=== PATIENT | female | born 1960 | race Two or more races ===

== ENCOUNTER 2019-10-23 14:26 | Emergency (ER) | payer SELFPAY ==
--- NOTE | 2019-10-23 16:57 | EKG REPORT ---
SEVERITY:- NORMAL ECG - SINUS RHYTHM : Confirmed by: Raheel Bustamante MD 23-Oct-2019 16:57:03
--- NOTE | 2019-10-23 17:02 | RADIOLOGY REPORT (SQ) ---
EXAM DESCRIPTION: CHEST SINGLE VIEW IMAGES COMPLETED DATE/TIME: 10/23/2019 4:52 pm REASON FOR STUDY: sob COMPARISON: None. EXAM PARAMETERS: NUMBER OF VIEWS: One view. TECHNIQUE: Single frontal radiographic view of the chest acquired. RADIATION DOSE: NA LIMITATIONS: None. FINDINGS: LUNGS AND PLEURA: No opacities, masses or pneumothorax. No pleural effusion. MEDIASTINUM AND HILAR STRUCTURES: No masses. Contour normal. HEART AND VASCULAR STRUCTURES: Heart upper limits of normal in size. Normal vasculature. BONES: No acute findings. HARDWARE: None in the chest. OTHER: No other significant finding. IMPRESSION: 1. NO ACUTE RADIOGRAPHIC FINDING IN THE CHEST. TECHNICAL DOCUMENTATION: JOB ID: [id number] [employer]- All Rights Reserved Reading location - IP/workstation name: [email or web address]
--- NOTE | 2019-10-23 17:05 | ER Document Report ---
ED Respiratory Problem - General Chief Complaint: Shortness Of Breath Stated Complaint: SHORTNESS OF BREATH Time Seen by Provider: 10/23/19 16:23 Notes: CHIEF COMPLAINT: Shortness of breath over the last 5 days HPI: 59-year-old female who is in otherwise good health presenting for shortness of breath over the last 5 days. Patient states that she moved up here in September from [place] and did self quarantine. She states that 2 weeks ago she had slight cold symptoms so did have a COVID test that was negative. Patient states that when she began having increasing shortness of breath within this last week without fever she went to [facility] and had another test done 2 days ago that was positive for COVID. They prescribed her prednisone and an albuterol inhaler which she has not been using over the last 2 days. ROS: See HPI - all other systems were reviewed and are otherwise negative Constitutional: no fever Eyes: no drainage, no blurred vision ENT: no runny nose, no sore throat Cardiovascular: no chest pain Resp: + SOB, no cough GI: no vomiting, no diarrhea, no abdominal pain : no dysuria Integumentary: no rash Allergy: no hives Musculoskeletal: no extremity pain or swelling Neurological: no numbness/tingling, no weakness MEDICATIONS: I agree with the patient medications as charted by the RN. ALLERGIES: I agree with the allergies as charted by the RN. PAST MEDICAL HISTORY/PAST SURGICAL HISTORY: Reviewed and agree as charted by RN. SOCIAL HISTORY: Reviewed and agree as charted by RN. FAMILY HISTORY: No significant familial comorbid conditions directly related to patient complaint EXAM: Reviewed vital signs as charted by RN. CONSTITUTIONAL: Alert and oriented and responds appropriately to questions. Well-appearing; well-nourished HEAD: Normocephalic; atraumatic EYES: PERRL; Conjunctivae clear, sclerae non-icteric ENT: normal nose; no rhinorrhea; moist mucous membranes; pharynx without lesions noted, no uvula edema or deviation, no tonsillar hypertrophy, phonation normal NECK: Supple without meningismus; non-tender; no cervical lymphadenopathy, no masses CARD: RRR; no murmurs, no clicks, no rubs, no gallops; symmetric distal pulses RESP: Normal chest excursion without splinting or tachypnea; breath sounds clear and equal bilaterally; no wheezes, no rhonchi, no rales, pulse oximetry 97% on room air not hypoxic ABD/GI: Normal bowel sounds; non-distended; soft, non-tender, no rebound, no guarding; no palpable organomegaly or masses. BACK: The back appears normal and is non-tender to palpation, there is no CVA tenderness EXT: Normal ROM in all joints; non-tender to palpation; no cyanosis, no e ffusions, no edema SKIN: Normal color for age and race; warm; dry; good turgor; no acute lesions noted NEURO: Moves all extremities equally; Motor and sensory function intact PSYCH: The patient's mood and manner are appropriate. Grooming and personal hygiene are appropriate. MDM: 59-year-old otherwise healthy female who is COVID positive in the last 2 to 3 days with 5 days of shortness of breath without chest pain. Patient states 2 days ago she actually did feel slightly better but states the shortness of breath was worse last night. Has an inhaler of albuterol and prednisone prescription which she filled but never started taking. We will show the patient how to use her albuterol inhaler. Given her age will obtain a chest x- ray to evaluate for infiltrate or pneumonia. Will obtain 1 set of screening cardiac labs - Related Data Allergies/Adverse Reactions: codeine Allergy (Verified 10/23/19 17:22) Past Medical History - Social History Smoking Status: Unknown if Ever Smoked Family History: Reviewed & Not Pertinent Physical Exam - Vital signs Vitals: Temp Pulse Resp BP Pulse Ox 98.8 F 79 16 121/89 H 97 10/23/19 15:19 10/23/19 15:19 10/23/19 15:19 10/23/19 15:19 10/23/19 15:19 Course - Re-evaluation Re-evalutation: 10/23/19 18:16 Patient's cardiac labs do not show acute abnormalities. Once that was obtained given her shortness of breath complaint over the last 5 days, she has not had any chest pain suggesting ACS. EKG normal sinus rhythm with a ventricular rate of 67 interpreted by emergency department physician. OR 128 QT 416. Will give patient Decadron here as prednisone not specifically recommended for COVID positive shortness of breath patient's. Patient chest x-ray did not show evidence of infiltrate will teach patient how to use her albuterol inhaler which she has not been using and have her follow-up with PCP return for worsening symptoms. Patient's dyspnea comes and goes, does not have any pleuritic pain or tachycardia suggesting a PE at this time. - Vital Signs Vital signs: Temp Pulse Resp BP Pulse Ox 98.8 F 79 16 121/89 H 97 10/23/19 15:19 10/23/19 15:19 10/23/19 15:19 10/23/19 15:19 10/23/19 16:47 - Laboratory Result Diagrams: 10/23/19 17:02 10/23/19 17:02 Laboratory results interpreted by me: 10/23/19 10/23/19 17:02 17:02 Hct 35.1 L ALT 41 H Discharge - Discharge Clinical Impression: COVID-19 virus infection Dyspnea Qualifiers: Dyspnea type: shortness of breath Qualified Code(s): R06.02 - Shortness of breath; R06.00 - Dyspnea, unspecified; R06.01 - Orthopnea Condition: Stable Disposition: HOME, SELF-CARE Additional Instructions: Use the albuterol inhaler 2 puffs every 4 hours for shortness of breath. You are given Decadron tonight which is a long-acting steroid which should help with some of your shortness of breath. If you have worsening shortness of breath return for reevaluation your chest x-ray did not show evidence of pneumonia today. Your cardiac and heart lab work today was all normal Referrals: YARELIS CARROLL MD [ACTIVE STAFF] - Follow up as needed
[2019-10-23 17:17] LABS: ABSOLUTE BASOPHILS # (AUTO) 0.1 10^3/uL (0.0-0.2); ABSOLUTE EOSINOPHILS # (AUTO) 0.1 10^3/uL (0.0-0.6); ABSOLUTE MONOCYTES (AUTO) 0.6 10^3/uL (0.1-1.4); ABSOLUTE NEUT (AUTO) 3.8 10^3/uL (1.7-8.2); BASOPHILS % (AUTO) 0.8 % (0-2); EOSINOPHILS % (AUTO) 1.8 % (0-6); HEMATOCRIT 35.1 % (36.0-47.0); HEMOGLOBIN 12.1 g/dL (12.0-15.5); LYMPHOCYTES % (AUTO) 30.8 % (13-45); MEAN CORPUSCULAR HEMOGLOBIN 30.6 pg (27.0-33.4); MEAN CORPUSCULAR HGB CONC 34.4 g/dL (32.0-36.0); MEAN CORPUSCULAR VOLUME 89 fl (80-97); MONOCYTES % (AUTO) 9.7 % (3-13); PLATELET COUNT 331 10^3/uL (150-450); RED BLOOD COUNT 3.94 10^6/uL (3.72-5.28); SEGMENTED NEUTROPHILS % (AUTO) 56.9 % (42-78); TOTAL CELLS COUNTED % (AUTO) 100 %; WHITE BLOOD COUNT 6.6 10^3/uL (4.0-10.5)
[2019-10-23 17:35] LABS: ALBUMIN 4.4 g/dL (3.5-5.0); ALKALINE PHOSPHATASE 110 U/L (38-126); ANION GAP 8 (5-19); ASPARTATE AMINO TRANSFERASE 36 U/L (14-36); BILIRUBIN,DIRECT 0.3 mg/dL (0.0-0.4); BILIRUBIN,TOTAL 0.5 mg/dL (0.2-1.3); BLOOD UREA NITROGEN 15 mg/dL (7-20); CALCIUM 9.1 mg/dL (8.4-10.2); CARBON DIOXIDE 25 mmol/L (22-30); CHLORIDE 105 mmol/L (98-107); GLUCOSE 96 mg/dL (75-110); POTASSIUM 4.3 mmol/L (3.6-5.0)
[2019-10-23 17:44] LABS: NT PRO BNP 54 pg/mL (<125)
[2019-10-23 18:04] LABS: TROPONIN I < 0.012 ng/mL
[2019-10-23] MEDS ORDERED: DEXAMETHASONE 4 MG TABLET PO ONE (18:16)
[2019-10-23 19:25] VITALS: BP 105/85
== END 2019-10-23 19:23 | disposition home or self-care (01) ==
LOC: ER 14:26
DX: U07.1 COVID-19 (principal); R06.01 Orthopnea; R06.02 Shortness of breath; T48.6X6A Underdosing of antiasthmatics, initial encounter; T38.0X6A Underdosing of glucocorticoids and synthetic analogues, initial encounter; Z91.14 Patient's other noncompliance with medication regimen; Z79.899 Other long term (current) drug therapy; Z88.6 Allergy status to analgesic agent; Z88.5 Allergy status to narcotic agent
CPT/HCPCS: 93005; 99285; 36415; 85025; 80053; 84484; 83880; 71045; 93010; J8540